=== PATIENT | female | born 1970 | race Caucasian/White ===

== ENCOUNTER 2019-12-15 08:54 | Day surgery (SDC) | payer BC ==
[~2019-12-15 08:54] MED LIST: Lactated Ringers 1,000 ML IV SCH; Lidocaine 1%/Sod Bicarbonate in NS 8.4% 1 ML Syringe IDERM PRN; Sodium Chloride 0.9% 10 ML Syringe FLUSH PRN
--- NOTE | 2019-12-15 09:11 | PCM.PREANE ---
Preanesthetic Assessment - Procedure Proposed Procedure: Diagnostic laparoscopy - Anesthesia/Transfusion/Family Hx Anesthesia History: Prior Anesthesia Without Reaction Family History of Anesthesia Reaction: No Transfusion History: No Prior Transfusion(s) Intubation History: Unknown - Review of Systems General: No Symptoms Pulmonary: No Symptoms (Smoker 1/2 ppd times 30 years/ETOH: 5 drinks times 2 days per week.) Cardiovascular: No Symptoms Gastrointestinal: No Symptoms (GERD-no symptoms at this time per patient.), Abdominal Pain (with abdominal hernia noted per H/P./06/18) Neurological: No Symptoms Other: Reports: Sinus Problem (sinusitis/seasonal allergies), Depression, Anxiety - Physical Assessment NPO Status Date: 12/14/19 NPO Status Time: 22:00 Vital Signs: HR: 80 B/P: 142/73 Sat: 98% Resp: 14 Temp: 97.4 Height: 1.65 m Weight: 87 kg ASA Class: 2 Mental Status: Alert & Oriented x3 Airway Class: Mallampati = 2 Dentition: Reports: Normal Dentition, Caries Thyro-Mental Finger Breadths: 3 Mouth Opening Finger Breadths: 3 ROM/Head Extension: Full Lungs: Clear to Auscultation, Normal Respiratory Effort Cardiovascular: Regular Rate, Regular Rhythm, No Murmurs - Lab Values: All labs reviewed and noted and within acceptable ranges to proceed with scheduled procedure. - Allergies Allergies/Adverse Reactions: Allergies Allergy/AdvReac Type Severity Reaction Status Date / Time No Known Allergies Allergy Verified 12/14/19 14:21 - Anesthesia Plan Pre-Op Medication Ordered: None - Acknowledgements Anesthesia Type Planned: General Anesthesia Pt an Appropriate Candidate for the Planned Anesthesia: Yes Alternatives and Risks of Anesthesia Discussed w Pt/Guardian: Yes Pt/Guardian Understands and Agrees with Anesthesia Plan: Yes PreAnesthesia Questionnaire HEENT History: Reports: Sinusitis Respiratory History: Reports: Other (See Below) Other Respiratory History: Patient has rescue inhaler Gastrointestinal History: Reports: Chronic Constipation, GERD, Other (See Below) Other Gastrointestinal History: Abdominal hernia Genitourinary History: Reports: Urinary Incontinence, Other (See Below) Other Genitourinary History: stress urinary incontence [employer]ING [employer]ER History: Reports: Other (See Below) Other OB/BYN History: Endometriosis Musculoskeletal History: Reports: Fracture Psychiatric History: Reports: Depression - Past Surgical History HEENT Surgical History: Reports: Adenoidectomy, Tonsillectomy GI Surgical History: Reports: Cholecystectomy Female Surgical History: Reports: Hysterectomy, Other (See Below) Other Female Surgeries/Procedures: Right Oophorectomy - SUBSTANCE USE Smoking Status *Q: Current Every Day Smoker Tobacco Use Within Last Twelve Months: Cigarettes Days Per Week of Alcohol Use: 2 Number of Drinks Per Day: 5 Total Drinks Per Week: 10 Recreational Drug Use History: No - HOME MEDS Home Medications: Home Meds Albuterol Sulfate [Albuterol Sulfate Hfa] 1 puff INH ASDIRECTED PRN 12/14/19 [History] - CURRENT (IN HOUSE) MEDS Current Meds: Current Medications Lactated Ringer's (Ringers, Lactated) 1,000 mls @ 125 mls/hr IV ASDIRECTED PCAO Lidocaine/Sodium Bicarbonate (Buffered Lidocaine 1% In Ns 8.4%) 0.25 ml IDERM ONETIME PRN PRN Reason: Prior to IV Start Sodium Chloride (Saline Flush) 10 ml FLUSH ASDIRECTED PRN PRN Reason: Keep Vein Open
[2019-12-15] MEDS ORDERED: Bupivacaine 0.5%/EPINEPHrine 1:200,000 50 ML MDV ONE (09:29)
[2019-12-15] MEDS ORDERED: Propofol 200 MG/20 ML SDV ONE (10:06)
[2019-12-15] MEDS ORDERED: Ondansetron 4 MG/2 ML SDV ONE (10:06)
[2019-12-15] MEDS ORDERED: Midazolam 1 MG/ML 2 ML SDV ONE (10:06)
[2019-12-15] MEDS ORDERED: Lidocaine 1% 4 ML ONE (10:06)
[2019-12-15] MEDS ORDERED: fentaNYL 250 MCG/5 ML SDV ONE (10:06)
[2019-12-15] MEDS ORDERED: Rocuronium 50 MG/5 ML Vial ONE (10:06)
[2019-12-15] MEDS ORDERED: Ketorolac 30 MG/ML SDV ONE (10:07)
[2019-12-15] MEDS ORDERED: Dexamethasone 4 MG/ML 5 ML MDV ONE (10:07)
[2019-12-15] MEDS ORDERED: ceFAZolin 1 GM Vial ONE (10:58)
[2019-12-15] MEDS ORDERED: Labetalol 100 MG/20 ML MDV ONE (11:12)
[2019-12-15] MEDS ORDERED: HYDROmorphone 1 MG/ML Syringe ONE (11:14)
--- NOTE | 2019-12-15 11:50 | PCM.POSTAN ---
POST ANESTHESIA ASSESSMENT - MENTAL STATUS Mental Status: Alert, Oriented - VITAL SIGNS Vital Signs: Last Vital Signs Temp 97.4 F 12/15/19 08:55 Pulse 80 12/15/19 08:55 Resp 14 12/15/19 08:55 BP 142/73 H 12/15/19 08:55 Pulse Ox 98 12/15/19 08:55 147/82 99% 94 22 97.4F - RESPIRATORY Respiratory Status: Respiratory Rate WNL, Airway Patent, O2 Saturation Stable, Supplemental Oxygen - CARDIOVASCULAR CV Status: Pulse Rate WNL, Blood Pressure Stable - GASTROINTESTINAL GI Status: No Symptoms - PAIN Pain Score: 0 - POST OP HYDRATION Hydration Status: Adequate & Stable
--- NOTE | 2019-12-15 11:53 | PCM.PRNOTE ---
- Free Text/Narrative Note: Operative Report Date: 12/15/2019 Operation: diagnostic laparoscopy, adhesiolysis, primary repair of umbilical hernia Surgeon: José Puente MD [employer] Administrator: Mode Butler MD Findings: Some omental adhesions in the pelvis, with benign cystic appearance to left ovary. Some adhesions of the ovary to the sigmoid colon. Left hydrosalpinx. Very small incisional hernia at umbilicus. No endometriosis noted. Detailed Report: The patient was taken to the OR and placed supine. Time out was performed and general endotracheal anesthesia initiated. The abdomen was prepped and draped in usual sterile fashion. A Veress needle was inserted into the abdomen at the left upper quadrant at the midclavicular line just inferior to the costal margin. The abdomen was insufflated with CO2 to 15 mm Hg. The Veress was removed and a 5 mm bladed trocar was placed at site of Veress insertion. A laparoscope was inserted into the abdomen and contents inspected. The patient was positioned in steep Trendelenburg. There was a very small incisional hernia noted at the umbilicus. There appeared to be right hydrosalpinx. There was omentum adherent to the anterior abdominal wall just superior to the pubis. The left ovary appeared cystic and was adherent to the sigmoid colon. There was no evidence of endometriosis. Additional 5 mm ports were placed at the umbilicus and the right lateral abdomen. Adhesions were divided using the Ligasure. No salpingectomy or oophorectomy was deemed necessary. The umbilical port was then removed, and the fascia at this site was closed with 0 vicryl using the laparoscopic suture passer. Pneumoperitoneum was released and remaining ports removed. Incisions were closed at the level of the skin with vicryl suture and dressed with dermabond. A total of 25 cc 0.5% marcaine with epinephrine was used for local anesthetic. Wounds were dressed with dermabond. The patient tolerated the procedure well.
--- NOTE | 2019-12-15 12:16 | PCM48HPAN ---
Post Anesthesia Note - EVALUATION WITHIN 48HRS OF ANESTHETIC Vital Signs in Normal Range: Yes Patient Participated in Evaluation: Yes Respiratory Function Stable: Yes Airway Patent: Yes Cardiovascular Function Stable: Yes Hydration Status Stable: Yes Pain Control Satisfactory: Yes Nausea and Vomiting Control Satisfactory: Yes Mental Status Recovered: Yes Vital Signs: Last Vital Signs Temp 36.2 C 12/15/19 12:10 Pulse 75 12/15/19 12:10 Resp 13 12/15/19 12:10 BP 134/79 12/15/19 12:10 Pulse Ox 96 12/15/19 12:10 - COMMENTS/OBSERVATIONS Free Text/Narrative:: no anesthesia complications noted
[2019-12-15 14:34] VITALS: BP 125/69; PULSE 79
== END 2019-12-15 14:17 | disposition home or self-care (01) ==
LOC: JD.SDS 08:54
PROVIDERS: ATTEND Surgery
DX: K42.0 Umbilical hernia with obstruction, without gangrene (principal); K66.0 Peritoneal adhesions (postprocedural) (postinfection); N70.11 Chronic salpingitis; F32.9 Major depressive disorder, single episode, unspecified; K21.9 Gastro-esophageal reflux disease without esophagitis; Z79.899 Other long term (current) drug therapy; Z90.49 Acquired absence of other specified parts of digestive tract; F17.210 Nicotine dependence, cigarettes, uncomplicated; Z98.890 Other specified postprocedural states; Z01.812 Encounter for preprocedural laboratory examination; Z20.828 Contact with and (suspected) exposure to other viral communicable diseases
CPT/HCPCS: 49653; J0690; J1100; J1170; J1885; J2001; J2250; J2405; J2704; J2710; J3010; J3490; J7120; 00840